=== PATIENT | male | born 1995 | race Caucasian/White ===

== ENCOUNTER 2018-01-20 12:21 | Emergency (ER) | payer OTHER ==
[~2018-01-20] VITALS: Ht 185.4 cm; Wt 96.2 kg
[2018-01-20 12:30] VITALS: Ht 185.4 cm; Wt 96.2 kg
[2018-01-20 12:54] LABS: BASOPHIL % 0.5 % (0-2); PLATELET COUNT 348 x10^3mcL (130-400); RED CELL DISTRIBUTION WIDTH 13.8 % (11.5-14.5)
[2018-01-20 13:08] LABS: CALCIUM 8.7 mg/dL (8.5-10.1); CARBON DIOXIDE 33.3 mmol/L (21-32); CHLORIDE SERUM 102 mmol/L (98-107); CREATININE SERUM 1.3 mg/dL (0.7-1.3); GFR1 > 60 mL/min; GLUCOSE SERUM 90 mg/dL (74-106); POTASSIUM SERUM 4.1 mmol/L (3.5-5.1); SODIUM SERUM 139 mmol/L (136-145)
[2018-01-20 13:22] LABS: T3 TOTAL 1.02 ng/mL
[2018-01-20 13:23] LABS: FREE T4 0.94 ng/dL (0.76-1.46); FREE THYROXINE INDEX 2.6 ug/dL (1.4-4.5); T4(THYROXINE) 6.9 ug/dL (4.7-13.3)
[2018-01-20 14:33] VITALS: BP 129/74
== END 2018-01-20 14:33 | disposition home or self-care (01) ==
LOC: ED 12:21
PROVIDERS: Emergency Medicine
DX: R07.89 Other chest pain (principal); R06.02 Shortness of breath
CPT/HCPCS: 36415; 84439; 85378; J1885; Q0092